=== PATIENT | female | born 2000 | race American Indian/Alaskan Native ===

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

== ENCOUNTER 2018-09-16 22:01 | Emergency (ER) | payer SELFPAY ==
[2018-09-16 22:05] VITALS: BP 136/93
[2018-09-16 22:42] LABS: ANION GAP 15.2; CHLORIDE,CL 108 mmol/L (101-111); SODIUM,NA 139 mmol/L (135-145)
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
== END 2018-09-16 23:13 ==
LOC: DL.ED 22:01
DX: F10.129 Alcohol abuse with intoxication, unspecified (principal); F15.10 Other stimulant abuse, uncomplicated; Y90.8 Blood alcohol level of 240 mg/100 ml or more; Z77.22 Contact with and (suspected) exposure to environmental tobacco smoke (acute) (chronic)
CPT/HCPCS: 36415; 80053; 80305-QW; 84703; 85025; 99283; G0480

== ENCOUNTER 2023-12-09 11:17 | Inpatient (IN) | payer MEDICAID ==
[2023-12-09] MEDS ORDERED: Oxytocin 10 Units/1 ML SDV IM PRN (14:58)
[2023-12-09] MEDS ORDERED: Tranexamic Acid 1,000 MG in Sodium Chloride 0.9% 100 ML IV PRN ×2 (14:58→18:43)
[2023-12-09] MEDS ORDERED: Methylergonovine 0.2 MG Tab PO PRN (14:58)
[2023-12-09] MEDS ORDERED: Sodium Chloride 0.9% 10 ML Syringe FLUSH PRN (14:58)
[2023-12-09] MEDS ORDERED: Carboprost Tromethamine 250 MCG/1 ML Amp IM PRN ×2 (14:58→18:43)
[2023-12-09] MEDS: Lactated Ringers 1,000 ML IV SCH ×2 (15:30→16:33)
[2023-12-09 15:37] LABS: HEMATOCRIT 36.7 % (37.0-47.0); MEAN CORPUSCULAR HGB CONC 32.7 g/dL (33.0-35.0); MEAN CORPUSCULAR VOLUME 85.5 fL (80-100); RED BLOOD CELL COUNT 4.29 10^6/uL (4.2-5.4); WHITE BLOOD CELL COUNT,WBC 6.2 10^3/uL (5.0-10.0)
[2023-12-09] MEDS ORDERED: Oxytocin/Normal Saline 30 UNIT/500 ML BAG ONE (16:01)
[2023-12-09] MEDS ORDERED: Ondansetron 4 MG/2 ML SDV ONE (16:30)
[2023-12-09] MEDS ORDERED: Dexamethasone 4 MG/ML SDV ONE (16:31)
[2023-12-09] MEDS ORDERED: Ketorolac 30 MG/ML SDV ONE (16:31)
[2023-12-09] MEDS ORDERED: ceFAZolin 2 GM Vial ONE (16:31)
[2023-12-09] MEDS ORDERED: Oxytocin 10 Units/1 ML SDV ONE (16:31)
[2023-12-09] MEDS ORDERED: Misoprostol 400 MCG (4 X 100 MCG TAB) ONE ×2 (16:34→17:59)
[2023-12-09] MEDS: Citric Acid/Sodium Citrate Solution 30 ML Cup PO ONE (16:34)
[2023-12-09] MEDS: Oxytocin/Normal Saline 30 UNIT/500 ML BAG IV SCH (18:22)
[2023-12-09] MEDS ORDERED: Methylergonovine 0.2 MG/1 ML Amp IM PRN (18:43)
[2023-12-09] MEDS ORDERED: ePHEDrine 50 MG/ML SDV IVPUSH PRN (18:43)
[2023-12-09] MEDS ORDERED: Naloxone 2 MG/2 ML Syringe IVPUSH PRN (18:43)
[2023-12-09] MEDS ORDERED: Acetaminophen/oxyCODONE 325-5 MG Tab PO PRN (18:43)
[2023-12-09] MEDS ORDERED: diphenhydrAMINE 50 MG/ML SDV IV PRN (18:43)
[2023-12-09] MEDS ORDERED: oxyCODONE 5 MG Tab PO PRN (18:43)
[2023-12-09] MEDS ORDERED: diphenhydrAMINE 50 MG/ML SDV IVPUSH PRN (18:43)
[2023-12-09] MEDS: Ondansetron 4 MG/2 ML SDV IVPUSH PRN (20:16)
[2023-12-09] MEDS: Ketorolac 30 MG/ML SDV IVPUSH SCH (20:21)
[2023-12-09 20:40] LABS: AMPHETAMINES,URINE NEGATIVE (NEGATIVE); BARBITURATES,URINE NEGATIVE (NEGATIVE); BENZODIAZEPINE,URINE NEGATIVE (NEGATIVE); MDMA (ECSTASY), URINE NEGATIVE (NEGATIVE); METHADONE,URINE NEGATIVE (NEGATIVE); METHAMPHETAMINES,URINE NEGATIVE (NEGATIVE); OPIATES,URINE POSITIVE (NEGATIVE); OXYCODONE,URINE NEGATIVE (NEGATIVE); PHENCYCLIDINE,URINE NEGATIVE (NEGATIVE); TCA,URINE NEGATIVE (NEGATIVE)
[2023-12-09] MEDS: Simethicone 80 MG Tab.Chew PO SCH (22:21)
[2023-12-09] MEDS: Metoclopramide 10 MG/2 ML SDV IVPUSH PRN (22:21)
[2023-12-09] MEDS: Labetalol 100 MG Tab ONE (22:33)
[2023-12-09] MEDS: Labetalol 100 MG Tab PO SCH (22:35)
[2023-12-10] MEDS: Lactated Ringers 1,000 ML IV SCH (01:30)
[2023-12-10] MEDS: Ketorolac 30 MG/ML SDV IVPUSH SCH (02:32)
[2023-12-10 06:24] LABS: HEMATOCRIT 33.4 % (37.0-47.0); HEMOGLOBIN 10.9 g/dL (12.0-16.0)
[2023-12-10] MEDS: Furosemide 20 MG/2 ML VIAL IVPUSH ONE (07:46)
[2023-12-10] MEDS: Sodium Chloride 0.9% 10 ML Syringe FLUSH SCH (07:46)
[2023-12-10] MEDS: Prenatal Multivitamin with Calcium/Folic Acid/Iron Tab PO SCH (08:18)
[2023-12-10] MEDS ORDERED: Labetalol 100 MG Tab PO SCH (09:00)
[2023-12-10] MEDS: Acetaminophen 325 MG Tab PO PRN (12:05)
[2023-12-10] MEDS: Ibuprofen 800 MG Tab PO PRN (15:56)
[2023-12-10] MEDS: Docusate Sodium 100 MG Cap PO PRN (21:11)
[2023-12-10] MEDS: Acetaminophen/oxyCODONE 325-5 MG Tab PO PRN (21:15)
[2023-12-10] MEDS: ceFAZolin 2 GM Vial IVPUSH ONE (22:04)
[2023-12-10] MEDS: Misoprostol 400 MCG (4 X 100 MCG TAB) RECTAL ONE (22:04)
[2023-12-10] MEDS: Labetalol 100 MG Tab PO SCH (22:40)
[2023-12-11 10:42] VITALS: BP 107/54; PULSE 87
== END 2023-12-11 10:20 | disposition home or self-care (01) | DRG 788 ==
LOC: DL.OBCHECK 11:17 → DL.OB 14:00 → OBSVTOIN 17:20
PROVIDERS: ADMIT Student in an Organized Health Care Education/Training Program; ATTEND Student in an Organized Health Care Education/Training Program
PROC: 10D00Z1 Extraction of Products of Conception, Low, Open Approach (ICD-10-PCS; principal; 2023-12-09 17:00)
DX: O14.94 Unspecified pre-eclampsia, complicating childbirth (principal); O34.211 Maternal care for low transverse scar from previous cesarean delivery; O24.424 Gestational diabetes mellitus in childbirth, insulin controlled; O99.324 Drug use complicating childbirth; O99.214 Obesity complicating childbirth; O90.49 Other postpartum acute kidney failure; Z3A.37 37 weeks gestation of pregnancy; Z37.0 Single live birth
CPT/HCPCS: 36415; 51702; 59025; 80305-QW; 82947; 85014; 85018; 85027; 86850; 86900; 86901; A9270-GY; J1885; J1940; J2405; J2590; J2765; J3490; J7120

== ENCOUNTER 2024-02-28 04:32 | Emergency (ER) | payer MEDICAID ==
[2024-02-28] MEDS: cloNIDine 0.1 MG Tab PO ONE (04:56)
[2024-02-28] MEDS: Sodium Chloride 0.9% 10 ML Syringe FLUSH PRN (04:58)
[2024-02-28 04:59] LABS: BASOPHILS PERCENT AUTO 0.2 % (0.0-1.0); HEMATOCRIT 42.3 % (37.0-47.0); HEMOGLOBIN 13.5 g/dL (12.0-16.0); LYMPHOCYTES PERCENT AUTO 32.6 % (20.5-50.1); MEAN CORPUSCULAR HEMOGLOBIN 27.3 pg (27.0-34.0); MEAN CORPUSCULAR HGB CONC 31.9 g/dL (33.0-35.0); MEAN CORPUSCULAR VOLUME 85.5 fL (80-100); NEUTROPHILS PERCENT AUTO 57.2 % (42.2-75.2); PLATELET COUNT,PLT 402 10^3/uL (150-450); RED BLOOD CELL COUNT 4.95 10^6/uL (4.2-5.4)
[2024-02-28] MEDS: Ketorolac 30 MG/ML SDV IVPUSH ONE (05:10)
[2024-02-28] MEDS: Sodium Chloride 0.9% 1,000 ML IV ONE (05:10)
[2024-02-28 05:18] LABS: A/G RATIO 0.8; ALANINE AMINOTRANSFERASE,ALT 44 U/L (14-59); ALBUMIN 3.7 g/dL (3.4-5.0); ALKALINE PHOSPHATASE 216 U/L (46-116); ANION GAP 8.2 mEq/L (7-13); ASPARTATE AMNIOTRANSFERASE,AST 19 U/L (15-37); BILIRUBIN TOTAL 0.2 mg/dL (0.2-1.0); BLOOD UREA NITROGEN,BUN 19 mg/dL (7-18); BUN/CREATININE RATIO 25.7 (No establ ref range); C-REACTIVE PROTEIN 0.56 ng/dL (<=0.50); CALCIUM 9.5 mg/dL (8.5-10.1); CARBON DIOXIDE,CO2 29 mmol/L (21-32); CHLORIDE,CL 101 mmol/L (98-107); CREATININE 0.74 mg/dL (0.55-1.02); EST CRCL DRUG DOSING (CG) 103.67 mL/min; GLUCOSE RANDOM 120 mg/dL (70-99); POTASSIUM,K 4.2 mmol/L (3.5-5.1); PROTEIN TOTAL,TP 8.1 g/dL (6.4-8.2); SODIUM,NA 134 mmol/L (136-145)
[2024-02-28 05:19] LABS: ESTIMATED GFR 114 mL/min (>=60)
[2024-02-28 05:20] LABS: ETHANOL BLOOD MEDICAL < 3 mg/dL (0)
[2024-02-28] MEDS: Iopamidol 612 MG/ML 100 ML Bottle IVPUSH ONE (05:59)
[2024-02-28 06:14] LABS: APPEARANCE,URINE CLEAR (CLEAR); BILIRUBIN,URINE NEGATIVE (NEGATIVE); COLOR,URINE YELLOW (YELLOW); GLUCOSE,URINE NEGATIVE (NEGATIVE); KETONES,URINE NEGATIVE (NEGATIVE); LEUKOCYTE ESTERASE,URINE NEGATIVE (NEGATIVE); NITRITE,URINE NEGATIVE (NEGATIVE); OCCULT BLOOD,URINE NEGATIVE (NEGATIVE); PROTEIN,URINE NEGATIVE (NEGATIVE); UROBILINOGEN,URINE 0.2 mg/dL (0.2-1.0)
[2024-02-28 06:17] LABS: AMPHETAMINES,URINE NEGATIVE (NEGATIVE); BARBITURATES,URINE NEGATIVE (NEGATIVE); BENZODIAZEPINE,URINE NEGATIVE (NEGATIVE); MDMA (ECSTASY), URINE NEGATIVE (NEGATIVE); METHADONE,URINE NEGATIVE (NEGATIVE); METHAMPHETAMINES,URINE NEGATIVE (NEGATIVE); OPIATES,URINE NEGATIVE (NEGATIVE); OXYCODONE,URINE NEGATIVE (NEGATIVE); PHENCYCLIDINE,URINE NEGATIVE (NEGATIVE); TCA,URINE NEGATIVE (NEGATIVE)
[2024-02-28 07:29] VITALS: BP 121/72; PULSE 52
== END 2024-02-28 08:22 ==
LOC: DL.ED 04:32
DX: K80.50 Calculus of bile duct without cholangitis or cholecystitis without obstruction (principal); Z79.4 Long term (current) use of insulin; Z79.899 Other long term (current) drug therapy; Z53.29 Procedure and treatment not carried out because of patient's decision for other reasons
CPT/HCPCS: 36415; 74177; 80053; 80305-QW; 80307; 81003; 84703; 85025; 86140; 96361; 96374; 99284; 99284-25; J1885; J3490; J7030; Q9967